=== PATIENT | male | born 1980 | race Caucasian/White ===

== ENCOUNTER 2018-02-15 23:25 | Emergency (ER) | payer BC, OTHER ==
--- NOTE | 2018-02-15 23:55 | EDM.PDOC ---
ED HPI GENERAL MEDICAL PROBLEM - General Chief Complaint: Lower Extremity Injury/Pain Stated Complaint: [facility] Time Seen by Provider: 02/15/18 23:32 Source of Information: Reports: Patient History Limitations: Reports: No Limitations - History of Present Illness INITIAL COMMENTS - FREE TEXT/NARRATIVE: The patient presents by [facility] for bleeding from his right lower leg. The patient he helped a friend move over a week ago. He fell and had an abrasion to the right leg. Today he was at work at [employer] and the scab broke loose in the right leg and it started bleeding. He has lymphedema in both legs. He does have what appears to be a venous stasus ulcer or an abrasion that was not healing. Onset: Sudden Duration: Minutes: Location: Reports: Lower Extremity, Right (lower leg) Improves with: Reports: None Worsens with: Reports: None Associated Symptoms: Reports: No Other Symptoms - Related Data Allergies Allergy/AdvReac Type Severity Reaction Status Date / Time No Known Allergies Allergy Verified 02/15/18 23:28 Home Meds: Home Meds Cephalexin [Keflex] 500 mg PO QID #40 capsule 02/15/18 [Rx] Past Medical History Endocrine/Metabolic History: Reports: Other (See Below) Other Endocrine/Metabolic History: Lymphadema - Past Surgical History HEENT Surgical History: Reports: Tonsillectomy Social & Family History - Tobacco Use Smoking Status *Q: Never Smoker - Recreational Drug Use Recreational Drug Use: No Review of Systems - Review of Systems Review Of Systems: See Below Constitutional: Reports: No Symptoms Eyes: Reports: No Symptoms Ears: Reports: No Symptoms Nose: Reports: No Symptoms Mouth/Throat: Reports: No Symptoms Respiratory: Reports: No Symptoms Cardiovascular: Reports: No Symptoms GI/Abdominal: Reports: No Symptoms Genitourinary: Reports: No Symptoms Musculoskeletal: Reports: Other (Bleeding from the right lower leg) ED EXAM, GENERAL - Physical Exam Exam: See Below Exam Limited By: No Limitations General Appearance: Alert, No Apparent Distress Ears: Normal External Exam Nose: Normal Inspection Head: Atraumatic, Normocephalic Neck: Normal Inspection Respiratory/Chest: No Respiratory Distress Extremities: Other (Venous stasis ulcer or a nonhealed ulcer to the right lower leg with no active bleeding at this time but there is erythema around the wound. ) Course - Vital Signs Last Recorded V/S: Last Vital Signs Temp 98.4 F 09/18/18 23:28 Pulse 97 02/15/18 23:28 Resp 20 02/15/18 23:28 BP 144/80 H 02/15/18 23:28 Pulse Ox 95 02/15/18 23:28 - Re-Assessments/Exams Free Text/Narrative Re-Assessment/Exam: 02/15/18 23:54 I will have my nurse clean and dress the wound. There is erythema and this more then likely is infected. I will need to get him on some keflex and have him follow up with one of our providers. Departure - Departure Time of Disposition: 23:55 Disposition: Home, Self-Care 01 Condition: Good Clinical Impression: Cellulitis of right leg Ulcer of right leg Qualifiers: Non-pressure ulcer stage: unspecified non-pressure ulcer stage Qualified Code(s ): L97.919 - Non-pressure chronic ulcer of unspecified part of right lower leg with unspecified severity - Discharge Information *PRESCRIPTION DRUG MONITORING PROGRAM REVIEWED*: No *COPY OF PRESCRIPTION DRUG MONITORING REPORT IN PATIENT KERMIT: No Prescriptions: Cephalexin [Keflex] 500 mg PO QID #40 capsule Referrals: Christy Carlisle PA-C [[employer]] - 1 Week Additional Instructions: Take the keflex 4 times per day for 10 days. Wash your leg in warm soapy water 2 times per day and apply antibiotic ointment after. Please return if you are back.
== END 2018-02-16 00:20 | disposition home or self-care (01) ==
LOC: JD.ED 23:25
DX: L03.115 Cellulitis of right lower limb (principal); L97.919 Non-pressure chronic ulcer of unspecified part of right lower leg with unspecified severity
CPT/HCPCS: 99284

== ENCOUNTER 2019-05-01 16:17 | Emergency (ER) | payer BC ==
--- NOTE | 2019-05-01 17:23 | EDM.PDOC ---
ED HPI GENERAL MEDICAL PROBLEM - General Chief Complaint: Lower Extremity Injury/Pain Stated Complaint: RT LEG IS SWOLLEN LEAKING FLUID SENT FROM [facility] Time Seen by Provider: 05/01/19 17:06 Source of Information: Reports: Patient History Limitations: Reports: No Limitations - History of Present Illness INITIAL COMMENTS - FREE TEXT/NARRATIVE: The patient was sent from the walk in clinic. He has a history of lymphedema and his right leg started swelling more on Thanksgiving. He then developed some redness and skin break down. He has no fever or chills or other symptoms. This has been worse then this and he is hoping to try some oral antibiotics first. Onset: Gradual Duration: Day(s): Location: Reports: Lower Extremity, Right (lower leg) Improves with: Reports: None Worsens with: Reports: None Associated Symptoms: Reports: No Other Symptoms Right Lower Leg Pain Score (Numeric/FACES): 6 - Related Data Allergies Allergy/AdvReac Type Severity Reaction Status Date / Time No Known Allergies Allergy Verified 05/01/19 17:08 Home Meds: Home Meds Cephalexin [Keflex] 500 mg PO QID #40 capsule 02/15/18 [Rx] Sulfamethoxazole/Trimethoprim [Bactrim Ds Tablet] 2 each PO BID #40 tablet 05/01 [Rx] Past Medical History Endocrine/Metabolic History: Reports: Other (See Below) Other Endocrine/Metabolic History: Lymphadema - Past Surgical History HEENT Surgical History: Reports: Tonsillectomy Social & Family History - Tobacco Use Smoking Status *Q: Never Smoker - Caffeine Use Caffeine Use: Reports: Coffee Review of Systems - Review of Systems Review Of Systems: See Below Constitutional: Reports: No Symptoms Eyes: Reports: No Symptoms Ears: Reports: No Symptoms Nose: Reports: No Symptoms Mouth/Throat: Reports: No Symptoms Respiratory: Reports: No Symptoms Cardiovascular: Reports: No Symptoms GI/Abdominal: Reports: No Symptoms Genitourinary: Reports: No Symptoms Musculoskeletal: Reports: Other (right leg swelling and erythema) ED EXAM, GENERAL - Physical Exam Exam: See Below Exam Limited By: No Limitations General Appearance: Alert, No Apparent Distress Ears: Normal External Exam Nose: Normal Inspection Head: Atraumatic, Normocephalic Neck: Normal Inspection Respiratory/Chest: No Respiratory Distress, Lungs Clear, Normal Breath Sounds Cardiovascular: Regular Rate, Rhythm, No Edema, No Murmur GI/Abdominal: Soft, Non-Tender, No Organomegaly, No Mass Back Exam: Normal Inspection Extremities: Other (Moderate to sever edema to the right lower leg with erythema and some skin break down and drainage.) Course - Vital Signs Last Recorded V/S: Last Vital Signs Temp 97.5 F 05/01/19 17:05 Pulse 83 05/01/19 17:05 Resp 16 05/01/19 17:05 BP 150/89 H 05/01/19 17:05 Pulse Ox 99 05/01/19 17:05 - Re-Assessments/Exams Free Text/Narrative Re-Assessment/Exam: 05/01/19 17:23 He would like to try this as an outpatient with oral antibiotics. I will get him on some bactrim. Departure - Departure Time of Disposition: 17:30 Disposition: Home, Self-Care 01 Condition: Good Clinical Impression: Cellulitis of right leg - Discharge Information *PRESCRIPTION DRUG MONITORING PROGRAM REVIEWED*: No *COPY OF PRESCRIPTION DRUG MONITORING REPORT IN PATIENT KERMIT: No Prescriptions: Sulfamethoxazole/Trimethoprim [Bactrim Ds Tablet] 2 each PO BID #40 tablet Referrals: PCP,Not In Area [Primary Care Provider] - Additional Instructions: Clean your leg with warm soapy water 2 times per day and apply antibiotic ointment after. Take the bactrim DS 2 pills 2 times per day for 10 days. Put warm compresses on your leg 2 to 3 times per day and please return if you are worse.
== END 2019-05-01 17:38 | disposition home or self-care (01) ==
LOC: JD.ED 16:17
DX: L03.115 Cellulitis of right lower limb (principal)
CPT/HCPCS: 99282; 99283

== ENCOUNTER 2019-08-26 14:17 | Emergency (ER) | payer BC ==
--- NOTE | 2019-08-26 16:07 | EDM.PDOC ---
ED HPI GENERAL MEDICAL PROBLEM - General Chief Complaint: Skin Complaint Stated Complaint: SKIN COMPLAINT/R LEG Time Seen by Provider: 08/26/19 15:42 Source of Information: Reports: Patient History Limitations: Reports: No Limitations - History of Present Illness INITIAL COMMENTS - FREE TEXT/NARRATIVE: Patient is a 39-year-old male who presents with complaints of redness or warmth , and erythema to his right lower extremity. Patient has a diagnosis of lymphedema for which he has wraps applied weekly with physical therapy. He states yesterday he noticed some redness and warmth around the scab to the medial aspect of his right knee. He has had occurrences such as this in the past and been treated with oral antibiotics for cellulitis in the infection clears up well. Has not had a fever, chills, nausea, vomiting, or diarrhea. He sees physical therapy on Wednesday for wound care. Right Knee Pain Score (Numeric/FACES): 3 - Related Data Allergies Allergy/AdvReac Type Severity Reaction Status Date / Time No Known Allergies Allergy Verified 05/01/19 17:08 Home Meds: Home Meds Empagliflozin [Jardiance] 25 mg PO DAILY 08/26/19 [History] Furosemide 20 mg PO DAILY 08/26/19 [History] Sulfamethoxazole/Trimethoprim [Bactrim Ds Tablet] 2 each PO BID 10 Days #40 tablet 08/26/19 [Rx] Past Medical History Endocrine/Metabolic History: Reports: Other (See Below) Other Endocrine/Metabolic History: Lymphadema - Past Surgical History HEENT Surgical History: Reports: Tonsillectomy Social & Family History - Tobacco Use Smoking Status *Q: Never Smoker - Caffeine Use Caffeine Use: Reports: Tea - Recreational Drug Use Recreational Drug Use: No ED ROS GENERAL - Review of Systems Review Of Systems: Comprehensive ROS is negative, except as noted in HPI. ED EXAM, SKIN/RASH Exam: See Below Exam Limited By: No Limitations General Appearance: Alert, WD/WN, No Apparent Distress Respiratory/Chest: No Respiratory Distress, Lungs Clear, Normal Breath Sounds, No Accessory Muscle Use, Chest Non-Tender Cardiovascular: Normal Peripheral Pulses, Regular Rate, Rhythm, No Edema, No Gallop, No JVD, No Murmur, No Rub Extremities: Other (Lymphedema to bilateral lower extremities. Right more edematous than the left. Small scab with mild redness, warmth, and erythema surrounding to the medial aspect of the right knee. ) Course - Vital Signs Last Recorded V/S: Last Vital Signs Temp 97.2 F 08/26/19 14:56 Pulse 69 08/26/19 14:56 Resp 16 08/26/19 14:56 BP 135/72 08/26/19 14:56 Pulse Ox 96 08/26/19 14:56 - Re-Assessments/Exams Free Text/Narrative Re-Assessment/Exam: 08/26/19 16:04 Wraps to the bilateral lower extremities were removed. Lower extremities were visualized and there are no ulcers, redness, or swelling, with the exception of the one area of localized erythema around a scab to the medial aspect of the right knee. Patient has been seen in this ER on a couple other occasions for similar complaints. He has been treated with Bactrim and Keflex both of which she states did resolve the cellulitis without issues. I rewrapped his lower extremities with a double layer of Juan C wraps. He does have a follow-up with PT on Wednesday and he states they can reapply the wraps at that time. We will discharge him home with a prescription for Bactrim DS 2 tabs twice daily for 10 days. Discharge instructions as documented. Departure - Departure Time of Disposition: 16:05 Disposition: Home, Self-Care 01 Condition: Fair Clinical Impression: Cellulitis Qualifiers: Site of cellulitis: extremity Site of cellulitis of extremity: lower extremity Laterality: right Qualified Code(s): L03.115 - Cellulitis of right lower limb - Discharge Information *PRESCRIPTION DRUG MONITORING PROGRAM REVIEWED*: No *COPY OF PRESCRIPTION DRUG MONITORING REPORT IN PATIENT KERMIT: No Prescriptions: Sulfamethoxazole/Trimethoprim [Bactrim Ds Tablet] 2 each PO BID 10 Days #40 tablet Instructions: Cellulitis, Adult Referrals: Christy Carlisle PA-C [Primary Care Provider] - Additional Instructions: You were seen in the emergency department today for redness and warmth to the medial aspect of your right knee. The wraps of your lower extremities were removed and no other areas of redness or erythema were found. Your legs were rewrapped with Juan C wraps. Recommend that you follow-up with your PT appointment on Wednesday to have your wraps reapplied. A prescription for Bactrim has been sent to [facility]. Take this medication as prescribed. Continue to monitor the area for increased redness, warmth, or purulent drainage. In addition if you should develop fever, chills, nausea, or vomiting , we would recommend that you return to the emergency department. Follow-up with primary care provider as needed. Sepsis Event Note - Evaluation Sepsis Screening Result: No Definite Risk - Focused Exam Vital Signs: Vital Signs Temp Pulse Resp BP Pulse Ox 08/26/19 14:56 97.2 F 69 16 135/72 96 Date Exam was Performed: 08/26/19 Time Exam was Performed: 16:01
== END 2019-08-26 16:20 | disposition home or self-care (01) ==
LOC: JD.ED 14:17
DX: L03.115 Cellulitis of right lower limb (principal)
CPT/HCPCS: 99283